=== PATIENT | female | born 1965 | race Caucasian/White ===

== ENCOUNTER 2023-11-18 11:43 | Outpatient (CLI) | payer BC ==
[2023-11-18 13:37] LABS: #Basophils 0.02 10x3/uL (0.0-0.2); #Eosinphils 0.05 10x3/uL (0.0-0.5); #Monocytes 0.37 10x3/uL (0.0-1.1); %Basophils 0.3 % (0.0-2.0); %Eosinophils 0.7 % (0.0-6.0); %Lymphocytes 26.2 % (18.0-47.0); %Monocytes 5.3 % (0.0-10.0); %Neutrophils 67.2 % (40.0-75.0); Hematocrit 39.9 % (34.9-44.5); Hemoglobin 13.1 g/dL (12.0-15.5); Mean Corpuscular HGB CONC 32.8 g/dL (32.0-36.0); Mean Corpuscular Hemoglobin 31.2 pg (27.0-33.0); Mean Platelet Volume 11.1 fL (7.4-10.4); Platelet Count 304 10x3/uL (150-450); RBC Distribution Width 12.9 % (11.5-14.5)
[2023-11-18 13:49] LABS: Anion Gap 13 mmol/L (10-20); BUN (Urea Nitrogen) 14 mg/dL (9.8-20.1); Calc. Creatinine Clearance 0 mL/min (70-130); Calcium 10.1 mg/dL (7.8-10.44); Carbon Dioxide 27 mmol/L (22-29); Chloride 102 mmol/L (98-107); Estimated GFR 89; Glucose 83 mg/dL (70-105); Sodium 138 mmol/L (136-145)
== END 2023-11-18 11:44 | disposition home or self-care (01) ==
LOC: CSHLAB 11:43
PROVIDERS: ATTEND Specialist
DX: Z01.812 Encounter for preprocedural laboratory examination (principal); C50.911 Malignant neoplasm of unspecified site of right female breast
CPT/HCPCS: 80048; 85025

== ENCOUNTER 2023-11-25 07:01 | Day surgery (SDC) | payer BC ==
[2023-11-18 12:03] VITALS: BMI 25.8
[2023-11-25] MEDS ORDERED: Acetaminophen 500 MG TAB ONE (08:10)
[2023-11-25] MEDS ORDERED: Ketorolac Tromethamine 30 MG (1 mL) VIAL ONE (08:10)
[2023-11-25] MEDS ORDERED: Scopolamine 1 mg/72 hour Patch ONE (10:22)
[2023-11-25] MEDS ORDERED: Famotidine/PF 20 mg/2ml Vial ONE (10:22)
[2023-11-25] MEDS ORDERED: PROPOFOL 20 ML ONE (13:33)
[2023-11-25] MEDS ORDERED: fentaNYL 50 mcg/mL 1 mL Vial ONE (13:33)
[2023-11-25] MEDS ORDERED: Lidocaine 1% PF 5 ML VIAL ONE (13:33)
[2023-11-25] MEDS ORDERED: Lidocaine 1% (PF) 30 ML VIAL ONE (13:37)
[2023-11-25] MEDS ORDERED: Bupivacaine/Epinephrine 0.25% 30 ML VIAL ONE (13:37)
[2023-11-25] MEDS ORDERED: CEFAZOLIN 2 GM VIAL ONE (13:37)
[2023-11-25] MEDS ORDERED: Isosulfan Blue 50 MG/5 ML VIAL ONE (13:37)
[2023-11-25] MEDS ORDERED: Dexamethasone 20 MG/5 ML VIAL ONE (14:14)
[2023-11-25] MEDS ORDERED: PHENYLEPHRINE-NS 100 MCG/ML 10 ML SYRINGE ONE (14:32)
[2023-11-25] MEDS ORDERED: ePHEDrine Sulfate 50 MG/10 ML VIAL ONE (14:41)
[2023-11-25] MEDS ORDERED: Ondansetron PF 4 MG/2 ML Vial ONE (15:50)
== END 2023-11-25 17:54 | disposition home or self-care (01) ==
LOC: CSHSDC 07:01
PROVIDERS: ATTEND Specialist
PROC: 0JH63WZ Insertion of Totally Implantable Vascular Access Device into Chest Subcutaneous Tissue and Fascia, Percutaneous Approach (ICD-10-PCS; principal; 2023-11-25)
PROC: 07B50ZZ Excision of Right Axillary Lymphatic, Open Approach (ICD-10-PCS; principal; 2023-11-25)
PROC: 0HBT0ZZ Excision of Right Breast, Open Approach (ICD-10-PCS; principal; 2023-11-25)
PROC: C71LYZZ Planar Nuclear Medicine Imaging of Upper Chest Lymphatics using Other Radionuclide (ICD-10-PCS; principal; 2023-11-25)
DX: C50.911 Malignant neoplasm of unspecified site of right female breast (principal); C77.3 Secondary and unspecified malignant neoplasm of axilla and upper limb lymph nodes; N60.91 Unspecified benign mammary dysplasia of right breast; N60.11 Diffuse cystic mastopathy of right breast; Z88.6 Allergy status to analgesic agent; Z79.899 Other long term (current) drug therapy; Z98.890 Other specified postprocedural states
CPT/HCPCS: 71045; 76098; 88307; C1713; C1788; J1100; J1642; J1885; J2405; J2704; J3010; J3490; Q9968

== ENCOUNTER 2023-12-19 13:10 | Outpatient (CLI) | payer BC | END 2023-12-19 13:11 | disposition home or self-care (01) | LOC: CSHULT 13:10 | PROVIDERS: ATTEND Internal Medicine Hematology & Oncology | DX: I42.7 Cardiomyopathy due to drug and external agent (principal); Z79.899 Other long term (current) drug therapy; C50.811 Malignant neoplasm of overlapping sites of right female breast | CPT/HCPCS: 93306 ==

== ENCOUNTER 2023-12-22 14:04 | Outpatient (CLI) | payer BC | END 2023-12-22 14:05 | disposition home or self-care (01) | LOC: CSHULT 14:04 | PROVIDERS: ATTEND Internal Medicine Hematology & Oncology | DX: Z51.11 Encounter for antineoplastic chemotherapy (principal); I42.7 Cardiomyopathy due to drug and external agent; Z79.899 Other long term (current) drug therapy | CPT/HCPCS: 76536 ==

== ENCOUNTER 2024-11-17 12:58 | Outpatient (CLI) | payer BC | END 2024-11-17 12:59 | disposition home or self-care (01) | LOC: CSHMAMMO 12:58 | PROVIDERS: ATTEND Specialist | DX: Z08 Encounter for follow-up examination after completed treatment for malignant neoplasm (principal); Z85.3 Personal history of malignant neoplasm of breast | CPT/HCPCS: 77066; G0279 ==